=== PATIENT | male | born 1975 | race African-American/Black ===

== ENCOUNTER → 2016-09-04 | Outpatient (CLI) | payer OTHER ==
[~2016-09-04] MED LIST: ANEXSIA 7.5/3251 TA1 PO; COUMADIN PO; DICYCLOMINE HCL20 MG PO; FLONASE 0.05% N16 G1; IMURAN50 MG PO; LOMOTIL TABLET1 TAB PO; PREDNISONE PO; PROTONIX PO; QUESTRAN PACK4 G/PK1; REMICADE; TOPROL XL; TOVIAZ4 MG
--- NOTE | ~2016-09-04 | US85 ---
[facility] A Service [facility] RADIOLOGY TEXT RESULTS PATIENT: MARC LAYTON LOCATION: SNIV : 75 UNIT #: [id number] AGE: [address]: Maycol Pantoja MD SEX: M ORDER DR: [id number] [place] [id number] MR#: [id number] Acc #: [id number] NAME: MARC LAYTON : 1975 SEX: M STUDY DATE/TIME: 09/04/2016 11:22 UNIT: SNIV ROOM: STUDY DESCRIPTION: [facility] St[facility] Attending Physician: Maycol Pantoja M.D. Ordering Physician: Maycol Pantoja M.D. Primary Care Physician: Jaime Collier M.D. MEDICAL IMAGING REPORT This report is preliminary unless electronic signature is present. EXAM Right lower extremity venous duplex 09/04/2016 HISTORY Right lower extremity edema for 3 weeks. History of lower extremity deep vein thrombosis 10 years ago. TECHNIQUE Venous ultrasound examination of the right lower extremity was performed using grayscale, spectral Doppler and color flow Doppler imaging. FINDINGS The examination is negative. There is no evidence of right lower extremity deep venous thrombus from the groin to the lower calf. Visualized greater saphenous vein is also patent. IMPRESSION Negative examination. No evidence of right lower extremity deep venous thrombosis. Dictated by... Gilberto Joe M.D. THIS IS AN ELECTRONICALLY VERIFIED REPORT Gilberto Joe M.D. at 09/05/2016 2:25 PM KRT/hu TD: 09/04/2016 14:40 JOB #: [id number] MEDICAL IMAGING REPORT [facility]. [facility] A Service of [facility] RADIOLOGY TEXT RESULTS PATIENT: MARC LAYTON LOCATION: SNIV : 75 UNIT #: [id number] AGE: [address]: Maycol Pantoja MD SEX: M ORDER DR: Page 1 of 1
== END | disposition home or self-care (01) ==
LOC: SNIV 11:17
DX: R60.0 Localized edema (principal); Z86.718 Personal history of other venous thrombosis and embolism
CPT/HCPCS: 93971